=== PATIENT | female | born 1945 | race Caucasian/White ===

== ENCOUNTER 2018-08-16 13:54 | Emergency (ER) | payer BC ==
[2018-08-16 14:02] VITALS: BMI 23.8
[2018-08-16] MEDS ORDERED: METOPROLOL TARTRATE 5 MG/5 ML VIAL IVPUSH ONE (14:23)
[2018-08-16] MEDS ORDERED: ATENOLOL 50 MG TABLET (FP) PO ONE (14:23)
[2018-08-16] MEDS ORDERED: ATENOLOL 25 MG TABLET (FP) ONE (14:43)
[2018-08-16] MEDS ORDERED: METOPROLOL TARTRATE 5 MG/5 ML VIAL ONE (14:44)
--- NOTE | 2018-08-16 14:44 | PDOC ---
History of Present Illness - General Chief Complaint: Lightheaded Stated Complaint: HIGH BLOOD PRESSURE Time Seen by Provider: 08/16/18 14:08 History Source: Patient Exam Limitations: No Limitations - History of Present Illness Initial Comments: 08/16/18 14:30 72-year-old female with history of hypertension previously maintained on atenolol/hydrochlorothiazide and Altace, had hctz removed a few weeks ago and since then baseline BPs have gone from 120-130 systolic to 160. In this setting , saw her PCP last week and decision made to monitor BP and potentially increase Altace dosing if remained elevated. BP remained in the 160 range on routine checks until last night. Otherwise asymptomatic and denying headache/vision change/speech change/n/v/focal weakness /gait disturbance, no cp/sob. Pt called her PCP today but not in office, so self increased the Altace to 5mg and took usual dose of Atenolol 50mg. In this setting, pt began feeling lightheaded while at work. BP initially in [facility] 195 systolic, presented to ED and remained elevated over 200. Reports some general lightheadedness, no focal neuro or cardiopulmonary complaints. unlimited exercise tolerance at baseline, has had normal stress tests in the past. Admittedly anxious about her blood pressures (friend/colleague recently had a stroke). no recent f/c/weight loss/weight gain no abd pain/v/d no leg swelling or cramping social etoh, no smoking. Past History - Past Medical History Allergies/Adverse Reactions: Allergies Allergy/AdvReac Type Severity Reaction Status Date / Time No Known Allergies Allergy Verified 08/16/18 13:56 Home Medications: Ambulatory Orders Atenolol [Tenormin -] 50 mg PO DAILY 08/16/18 Ramipril [Altace] 5 mg PO DAILY 08/16/18 COPD: No HTN: Yes - Suicide/Smoking/Psychosocial Hx Smoking History: Never smoked Information on smoking cessation initiated: No Hx Alcohol Use: No Drug/Substance Use Hx: No Review of Systems - Review of Systems Constitutional: No: Chills, Fever HEENTM: No: Recent change in vision, Double Vision Respiratory: No: Orthopnea, Shortness of Breath, SOB with Exertion Cardiac (ROS): Yes: Lightheadedness. No: Chest Pain, Edema, Syncope ABD/GI: No: Diarrhea, Vomiting Neurological: No: Headache, Paresthesia, Weakness, Ataxia, Dizziness All Other Systems: Reviewed and Negative *Physical Exam - Vital Signs Last Vital Signs Temp Pulse Resp BP Pulse Ox 72 79 H 205/100 H 98 08/16/18 13:56 08/16/18 13:56 08/16/18 13:56 08/16/18 13:56 - Physical Exam Comments: 08/16/18 14:44 blood pressure 205/100 at triage. Heart rate 80, O2 sat normal GENERAL: The patient is awake, alert, and fully oriented, in no acute distress. Speaking full sentences fluently. HEAD: Normal with no signs of trauma. EYES: PERRL, EOMI, conjunctiva clear with no pallor. ENT: oropharynx clear. Moist mucous membranes. NECK: Normal range of motion, supple without JVD or masses. LUNGS: Breath sounds equal, clear to auscultation bilaterally. No wheeze/ crackles. HEART: Regular rate and rhythm, normal S1 and S2 without murmur. ABDOMEN: Soft/nontender/nondistended. BS wnl. No guarding or rebound. No palpable masses. No hepatosplenomegaly. EXTREMITIES: Normal range of motion, no edema. 2+ distal pulses. No cords, erythema, or tenderness. NEUROLOGICAL: Mental status: The patient is alert and oriented x3. Cranial nerves: Cranial nerves II through XII are intact Motor: The upper extremities are 5 over 5 in all muscle groups. The lower extremities are 5 over 5 in all muscle groups. No pronator drift. Sensation: Sensation is intact to light touch throughout. Cerebellar: [id number] is normal in both upper extremities. Reflexes: 2+ and symmetric in the upper and lower extremities. Gait: Normal. PSYCH: Normal mood, normal affect. SKIN: Warm, Dry, no rashes or lesions noted. Vital Signs - Vital Signs #1 Blood Pressure: 167/88 MAP: 114 BP Location: Right Arm Blood Pressure Position: Supine Pulse Rate: 68 Heart Score/ECG Review #1 ECG reviewed & interpreted by me at: 13:54 General ECG Interpretation: Sinus Rhythm, Normal Rate (74), Normal Intervals ( qtc 455), No acute ischemic changes Compared to previous ECG there are: Previous ECG unavail ED Treatment Course - LABORATORY CBC & Chemistry Diagram: 08/16/18 14:51 08/16/18 14:51 - RADIOLOGY Radiology Studies Ordered: Category Date Time Status CHEST X-RAY PORTABLE* [RAD] Stat Radiology 08/16/18 14:23 Ordered Medical Decision Making - Medical Decision Making 08/16/18 14:47 72-year-old female with history of hypertension and recent medication changes resulting in gradually increased baseline blood pressures now presents with lightheadedness in the setting of significantly elevated blood pressures. Exam is normal from a neurological and cardiopulmonary perspective, also asymptomatic without red flags for end organ injury on history. Check labs, EKG, chest x-ray Blood pressure control both intravenous and oral Monitor blood pressure, reassess 08/16/18 15:19 BP repeat prior to med administration 167/88, heart rate 68. Feeling better. Will hold IV/PO BB and instead give additional 2.5mg Altace. Continue to monitor , remains neuro and cardiopulm intact. labs pending. 08/16/18 15:42 labs wnl, trop negative. on my prelim review, cxr rotated but no acute pathology, mediastinum wnl. BP remains in the 160/60 range and sxs improved. Plan to continue on newly increased dose of Altace 5mg daily and scheduled f/u with her PCP on Wednesday. Understands strict return criteria. *DC/Admit/Observation/Transfer Diagnosis at time of Disposition: Elevated blood pressure reading, Lightheaded - Discharge Dispostion Disposition: HOME Condition at time of disposition: Improved - Referrals Referrals: Melvin Coe [Primary Care Provider] - - Patient Instructions Printed Discharge Instructions: DI for High Blood Pressure Additional Instructions: Activity as tolerated. Stay hydrated. Blood tests, an EKG, and a chest x-ray showed no acute abnormalities. You were given 2.5mg of Altace in the ER, in addition to the 5mg you took earlier today. As discussed, continue the Altace at the increased 5 mg daily until you see Dr. Coe. Also continue the Atenolol as previously prescribed. You should follow up with Dr. Coe as soon as possible regarding today's emergency department visit. Return to the emergency department for any new or concerning symptoms, particularly headache or vision changes, focal weakness, chest pain or shortness of breath. - Post Discharge Activity
[2018-08-16] MEDS ORDERED: RAMIPRIL 2.5 MG CAPSULE (FP) PO ONE (14:54)
[2018-08-16 14:59] LABS: BASO % 1.2 % (0-2.0); EOS % 0.6 % (0-4.5); HEMOGLOBIN 13.3 GM/dL (10.7-15.3); LYMPH % 16.9 % (8-40); MCH 30.6 pg (25.7-33.7); MEAN CELL VOLUME 90.1 fl (80-96); MEAN PLT VOLUME 9.3 fl (7.5-11.1); MONO % 5.3 % (3.8-10.2); PLATELET COUNT 181 K/MM3 (134-434); RBC 4.33 M/mm3 (3.60-5.2); RDW 12.4 % (11.6-15.6)
[2018-08-16 15:21] VITALS: BP 167/88; PULSE 68
[2018-08-16 15:39] LABS: ALBUMIN 3.8 g/dl (3.4-5.0); ALK PHOS 75 U/L (45-117); ANION GAP 9 MMOL/L (8-16); BILIRUBIN,TOTAL 0.5 mg/dL (0.2-1); BLOOD UREA NITROGEN 16 mg/dL (7-18); CALCIUM 8.8 mg/dL (8.5-10.1); CHLORIDE 101 mmol/L (98-107); CO2 26 mmol/L (21-32); CREATININE 0.6 mg/dL (0.55-1.3); GLUCOSE,RANDOM 116 mg/dL (74-106); MAGNESIUM 1.7 mg/dL (1.8-2.4); SGOT/AST 21 U/L (15-37); SGPT/ALT 21 U/L (13-61); SODIUM 136 mmol/L (136-145); TOT PROT 6.8 g/dl (6.4-8.2)
--- NOTE | 2018-08-17 11:05 | EKG ---
Test Reason : Blood Pressure : / mmHG Vent. Rate : 074 BPM Atrial Rate : 074 BPM P-R Int : 174 ms QRS Dur : 070 ms QT Int : 410 ms P-R-T Axes : 059 -14 044 degrees QTc Int : 455 ms POOR DATA QUALITY, INTERPRETATION MAY BE ADVERSELY AFFECTED NORMAL SINUS RHYTHM SEPTAL INFARCT , AGE UNDETERMINED ABNORMAL ECG WHEN COMPARED WITH ECG OF 29-MAR-2001 09:44, SEPTAL INFARCT IS NOW PRESENT NONSPECIFIC T WAVE ABNORMALITY, IMPROVED IN LATERAL LEADS QT HAS LENGTHENED Confirmed by ARSALAN BANUELOS, CHANCE ([id number]) on 08/17/2018 11:05:13 AM Referred By: Confirmed By:CHANCE ARRIAZA MD
== END 2018-08-16 16:02 | disposition home or self-care (01) ==
LOC: JER 13:54
DX: I10 Essential (primary) hypertension (principal)
CPT/HCPCS: 36415; 71045-TC-FY; 80053; 82550; 83735; 84484; 85025; 93005; 93010; 99282-25

== ENCOUNTER 2020-09-18 04:41 | Day surgery (SDC) | payer BC ==
[2020-09-16 15:06] VITALS: BMI 24.4
[2020-09-18 11:35] VITALS: TEMP 97.1
[2020-09-18 12:00] VITALS: PULSE 60
[2020-09-18 13:30] LABS: BASO % 1.2 % (0-2.0); EOS % 2.6 % (0-4.5); HEMATOCRIT 39.2 % (32.4-45.2); HEMOGLOBIN 13.4 GM/dL (10.7-15.3); LYMPH % 16.2 % (8-40); MCH 30.3 pg (25.7-33.7); MCHC 34.1 g/dl (32.0-36.0); MEAN CELL VOLUME 88.7 fl (80-96); MEAN PLT VOLUME 8.5 fl (7.5-11.1); PLATELET COUNT 241 K/MM3 (134-434); RBC 4.41 M/mm3 (3.60-5.2); RDW 12.8 % (11.6-15.6); WHITE BLOOD COUNT 7.1 K/mm3 (4.0-10.0)
[2020-09-18 13:54] VITALS: BP 164/60
[2020-09-18 13:54] LABS: INR 1.05 (0.83-1.09); PROTHROMBIN TIME (PATIENT) 12.9 SEC (9.7-13.0)
[2020-09-18 14:27] LABS: CALCIUM 8.8 mg/dL (8.5-10.1)
[2020-09-18 14:28] LABS: ALBUMIN 3.4 g/dl (3.4-5.0); BLOOD UREA NITROGEN 6.4 mg/dL (7-18)
[2020-09-18 14:31] LABS: CREATININE 0.5 mg/dL (0.55-1.3)
[2020-09-18 14:32] LABS: BILIRUBIN,TOTAL 0.5 mg/dL (0.2-1); TOT PROT 6.6 g/dl (6.4-8.2)
== END 2020-09-18 13:30 | disposition home or self-care (01) ==
LOC: JASU-ENDO 04:41
PROVIDERS: ATTEND Internal Medicine Gastroenterology
PROC: 0DBL8ZZ Excision of Transverse Colon, Via Natural or Artificial Opening Endoscopic (ICD-10-PCS; 2020-09-18)
PROC: 0DBP8ZX Excision of Rectum, Via Natural or Artificial Opening Endoscopic, Diagnostic (ICD-10-PCS; 2020-09-18)
PROC: 3E0H8KZ Introduction of Other Diagnostic Substance into Lower GI, Via Natural or Artificial Opening Endoscopic (ICD-10-PCS; 2020-09-18)
PROC: 0DBH8ZX Excision of Cecum, Via Natural or Artificial Opening Endoscopic, Diagnostic (ICD-10-PCS; principal; 2020-09-18 11:00)
DX: Z12.11 Encounter for screening for malignant neoplasm of colon (principal); D12.3 Benign neoplasm of transverse colon; D12.0 Benign neoplasm of cecum; C20 Malignant neoplasm of rectum; Z86.010 Personal history of colon polyps; K59.00 Constipation, unspecified; Z80.0 Family history of malignant neoplasm of digestive organs
CPT/HCPCS: 36415; 80053; 82378; 82728; 83540; 83550; 85025; 85610; 86140

== ENCOUNTER 2022-04-13 11:07 | Emergency (ER) | payer BC ==
[2022-04-13] MEDS ORDERED: FAMOTIDINE 20 MG/50 ML IVPB 20 MG/50 ML MG IVPB ONE ×2 (11:13→11:26)
[2022-04-13] MEDS ORDERED: MAG HYDROX/AL HYDROX/SIMETH 30 ML UNIT-DOSE CUP PO ONE (11:13)
[2022-04-13] MEDS ORDERED: ACETAMINOPHEN 1000 MG/100 ML BAG IVPB ONE (11:13)
[2022-04-13] MEDS ORDERED: ONDANSETRON 4 MG/2 ML VIAL IVPB ONE (11:14)
[2022-04-13] MEDS ORDERED: ONDANSETRON 4 MG/2 ML VIAL ONE (11:25)
[2022-04-13] MEDS ORDERED: ACETAMINOPHEN INJECTION 100 ML IVPB ONE (11:25)
[2022-04-13] MEDS ORDERED: MAG HYDROX/AL HYDROX/SIMETH 30 ML UNIT-DOSE CUP ONE (11:25)
[2022-04-13 11:30] VITALS: TEMP 97.8; BMI 23.6
[2022-04-13 11:58] LABS: BASO % 0.6 % (0-2.0); EOS % 0.3 % (0-4.5); HEMATOCRIT 37.3 % (32.4-45.2); HEMOGLOBIN 12.6 GM/dL (10.7-15.3); LYMPH % 8.5 % (8-40); MCH 29.6 pg (25.7-33.7); MCHC 33.7 g/dl (32.0-36.0); MEAN CELL VOLUME 87.8 fl (80-96); MEAN PLT VOLUME 7.8 fl (7.5-11.1); MONO % 5.9 % (3.8-10.2); NEUT % 84.7 % (42.8-82.8); PLATELET COUNT 222 10^3/uL (134-434); RBC 4.25 M/mm3 (3.60-5.2); RDW 13.4 % (11.6-15.6); WHITE BLOOD COUNT 6.8 K/mm3 (4.0-10.0)
[2022-04-13 12:26] LABS: ALBUMIN 3.7 g/dl (3.4-5.0); BLOOD UREA NITROGEN 13.6 mg/dL (7-18); CALCIUM 9.3 mg/dL (8.5-10.1)
[2022-04-13 12:27] LABS: MAGNESIUM 1.6 mg/dL (1.8-2.4)
[2022-04-13 12:29] LABS: CREATININE 0.7 mg/dL (0.55-1.3)
[2022-04-13 12:31] LABS: TOT PROT 7.5 g/dl (6.4-8.2)
[2022-04-13 12:36] LABS: BILIRUBIN,TOTAL 0.4 mg/dL (0.2-1)
[2022-04-13] MEDS ORDERED: SODIUM CHLORIDE 0.9% 500 ML INFUS.BAG IV ONE (12:36)
[2022-04-13] MEDS ORDERED: MAGNESIUM SULF 50% (8.12 MEQ/2 ML-1 GM VIAL) IVPB ONE (12:36)
[2022-04-13] MEDS ORDERED: MAGNESIUM SULFATE IN WATER 2 GM/50 ML IVPB IVPB ONE (15:24)
[2022-04-13 16:46] LABS: PH,URINE 6.5 (5.0-8.0); URINE APPEARANCE CLEAR; URINE BILIRUBIN NEGATIVE (NEGATIVE); URINE COLOR YELLOW; URINE GLUCOSE (UA) NEGATIVE (NEGATIVE); URINE KETONE 1+ (NEGATIVE); URINE LEUK ESTERASE NEGATIVE (NEGATIVE); URINE NITRITE NEGATIVE (NEGATIVE); URINE PROTEIN NEGATIVE (NEGATIVE); URINE UROBILINOGEN 0.2 mg/dL (0.2-1.0)
[2022-04-13 17:15] VITALS: BP 178/77; PULSE 66; RESP 18
== END 2022-04-13 17:21 | disposition home or self-care (01) ==
LOC: JER 11:07
PROC: 3E033GC Introduction of Other Therapeutic Substance into Peripheral Vein, Percutaneous Approach (ICD-10-PCS; principal; 2022-04-13)
DX: R10.13 Epigastric pain (principal); R11.2 Nausea with vomiting, unspecified; E87.1 Hypo-osmolality and hyponatremia
CPT/HCPCS: 0241U-QW; 36415; 71045-TC-FY; 74177-TC; 80053; 81003; 83605; 83690; 83735; 84484; 85025; 87086; 93005; 93010; 99285-25; Q9967

== ENCOUNTER 2022-08-26 04:25 | Day surgery (SDC) | payer BC ==
[2022-08-24 14:08] VITALS: BMI 23.0
[2022-08-26] MEDS ORDERED: PROPOFOL 60 ML ONE (10:23)
[2022-08-26 11:02] VITALS: TEMP 97.8
[2022-08-26 12:00] VITALS: BP 157/68; PULSE 63; RESP 18
== END 2022-08-26 12:09 | disposition home or self-care (01) ==
LOC: JASU-ENDO 04:25
PROVIDERS: ATTEND Internal Medicine Gastroenterology
PROC: 0DBN8ZX Excision of Sigmoid Colon, Via Natural or Artificial Opening Endoscopic, Diagnostic (ICD-10-PCS; principal; 2022-08-26 11:00)
DX: Z12.11 Encounter for screening for malignant neoplasm of colon (principal); K63.5 Polyp of colon; Z85.048 Personal history of other malignant neoplasm of rectum, rectosigmoid junction, and anus; Z98.0 Intestinal bypass and anastomosis status
CPT/HCPCS: 88305-TC

== ENCOUNTER 2023-10-28 16:13 | Observation (INO) | payer BC, OTHER ==
[2023-10-28 17:13] LABS: INR 1.02 (0.83-1.09); PROTHROMBIN TIME (PATIENT) 11.7 SEC (9.7-13.0)
[2023-10-28 17:14] LABS: EOS % 1.4 % (0-4.5); HEMATOCRIT 34.8 % (32.4-45.2); HEMOGLOBIN 12.1 GM/dL (10.7-15.3); LYMPH % 17.3 % (8-40); MCH 30.8 pg (25.7-33.7); MCHC 34.9 g/dl (32.0-36.0); MEAN CELL VOLUME 88.3 fl (80-96); MEAN PLT VOLUME 7.4 fl (7.5-11.1); MONO % 11.1 % (3.8-10.2); NEUT % 69.2 % (42.8-82.8); PLATELET COUNT 200 10^3/uL (134-434); RBC 3.94 M/mm3 (3.60-5.2); RDW 12.3 % (11.6-15.6); WHITE BLOOD COUNT 5.9 K/mm3 (4.0-10.0)
[2023-10-28 17:15] LABS: ACTIVATED PTT 21.8 SECONDS (25.2-36.5)
[2023-10-28 17:25] LABS: POTASSIUM 3.4 mmol/L (3.5-5.1)
[2023-10-28 17:27] LABS: ALBUMIN 3.8 g/dl (3.4-5.0); BLOOD UREA NITROGEN 10.7 mg/dL (7-18); CALCIUM 8.9 mg/dL (8.5-10.1)
[2023-10-28 17:30] LABS: CREATININE 0.6 mg/dL (0.55-1.3)
[2023-10-28 17:32] LABS: BILIRUBIN,TOTAL 0.4 mg/dL (0.2-1); TOT PROT 7.2 g/dl (6.4-8.2)
[2023-10-28] MEDS: SODIUM CHLORIDE 0.9% 500 ML INFUS.BAG IV ONE (17:32)
[2023-10-28 18:31] LABS: MAGNESIUM 1.7 mg/dL (1.8-2.4)
[2023-10-28] MEDS ORDERED: POTASSIUM CHLORIDE TABS 10 MEQ TABLET.ER (FP) PO ONE (18:34)
[2023-10-28] MEDS ORDERED: MAGNESIUM SULFATE IN WATER 2 GM/50 ML IVPB IVPB ONE (18:43)
[2023-10-28] MEDS ORDERED: POTASSIUM CHLORIDE TABS 20 MEQ TABLET.ER (FP) PO ONE (18:43)
[2023-10-28] MEDS ORDERED: POTASSIUM CHLORIDE ORAL LIQUID 20 MEQ/15 ML ONE (18:51)
[2023-10-28] MEDS: MAGNESIUM SULFATE IN WATER 2 GM/50 ML IVPB IVPB ONE (19:02)
[2023-10-28] MEDS: POTASSIUM CHLORIDE ORAL LIQUID 20 MEQ/15 ML PO ONE (19:02)
[2023-10-28 21:15] LABS: POTASSIUM 4.2 mmol/L (3.5-5.1)
[2023-10-28 21:16] LABS: CALCIUM 8.8 mg/dL (8.5-10.1)
[2023-10-28 21:17] LABS: BLOOD UREA NITROGEN 9.9 mg/dL (7-18)
[2023-10-28 21:20] LABS: CREATININE 0.5 mg/dL (0.55-1.3)
[2023-10-28 22:02] VITALS: BMI 25.2
[2023-10-29 01:46] VITALS: RESP 18
[2023-10-29 08:12] LABS: BASO % 0.9 % (0-2.0); EOS % 2.3 % (0-4.5); HEMATOCRIT 33.3 % (32.4-45.2); HEMOGLOBIN 11.3 GM/dL (10.7-15.3); LYMPH % 17.8 % (8-40); MCH 30.6 pg (25.7-33.7); MCHC 34.1 g/dl (32.0-36.0); MEAN CELL VOLUME 89.8 fl (80-96); MEAN PLT VOLUME 7.9 fl (7.5-11.1); MONO % 11.9 % (3.8-10.2); NEUT % 67.1 % (42.8-82.8); PLATELET COUNT 186 10^3/uL (134-434); RBC 3.71 M/mm3 (3.60-5.2); RDW 12.1 % (11.6-15.6); WHITE BLOOD COUNT 4.6 K/mm3 (4.0-10.0)
[2023-10-29] MEDS ORDERED: ACETAMINOPHEN 1000 MG/100 ML BAG IVPB PRN (08:12)
[2023-10-29] MEDS: ATENOLOL 50 MG TABLET (FP) PO SCH (09:15)
[2023-10-29] MEDS: RAMIPRIL 5 MG CAPSULE PO SCH (09:15)
[2023-10-29 09:26] LABS: POTASSIUM 3.8 mmol/L (3.5-5.1)
[2023-10-29 09:30] LABS: ALBUMIN 3.2 g/dl (3.4-5.0); BLOOD UREA NITROGEN 8.8 mg/dL (7-18); CALCIUM 8.5 mg/dL (8.5-10.1)
[2023-10-29 09:33] LABS: CREATININE 0.5 mg/dL (0.55-1.3)
[2023-10-29 09:35] LABS: BILIRUBIN,TOTAL 0.4 mg/dL (0.2-1); TOT PROT 6.3 g/dl (6.4-8.2)
[2023-10-29 09:37] LABS: URINE APPEARANCE CLEAR; URINE BILIRUBIN NEGATIVE (NEGATIVE); URINE COLOR YELLOW; URINE GLUCOSE (UA) NEGATIVE (NEGATIVE); URINE KETONE NEGATIVE (NEGATIVE); URINE LEUK ESTERASE NEGATIVE (NEGATIVE); URINE NITRITE NEGATIVE (NEGATIVE); URINE PROTEIN NEGATIVE (NEGATIVE); URINE UROBILINOGEN 0.2 mg/dL (0.2-1.0)
[2023-10-29] MEDS ORDERED: RAMIPRIL 5 MG CAPSULE PO SCH (10:00)
[2023-10-29] MEDS: CYANOCOBALAMIN (VITAMIN B-12) 1000 MCG/1 ML VIAL IM ONE (10:38)
[2023-10-29 14:25] VITALS: BP 156/71; PULSE 62; TEMP 98.1
== END 2023-10-29 16:05 | disposition home or self-care (01) ==
LOC: JER 16:13 → JERBED 16:45 → J4S 19:47
PROVIDERS: ADMIT Internal Medicine; ATTEND Internal Medicine
PROC: 3E0337Z Introduction of Electrolytic and Water Balance Substance into Peripheral Vein, Percutaneous Approach (ICD-10-PCS; principal; 2023-10-28)
DX: S06.360A Traumatic hemorrhage of cerebrum, unspecified, without loss of consciousness, initial encounter (principal); S02.2XXA Fracture of nasal bones, initial encounter for closed fracture; W18.39XA Other fall on same level, initial encounter; Z85.038 Personal history of other malignant neoplasm of large intestine; Y93.89 Activity, other specified; Y92.410 Unspecified street and highway as the place of occurrence of the external cause; I16.0 Hypertensive urgency; E87.1 Hypo-osmolality and hyponatremia; Z88.2 Allergy status to sulfonamides; Z88.8 Allergy status to other drugs, medicaments and biological substances
CPT/HCPCS: 36415; 70450-TC; 70496-TC; 70498-TC; 72125-TC; 80048; 80053; 81003; 82570; 82607; 82746; 83036; 83735; 84300; 84439; 84443; 84484; 85025; 85610; 85730; 86850; 86900; 86901; 93005; 93010; 97116-GP; 97161-GP; 99285-25; G0378; Q9967

== ENCOUNTER 2023-11-19 22:39 | Emergency (ER) | payer BC ==
[2023-11-19] MEDS ORDERED: cloNIDine HCL 0.1 MG TABLET ONE (22:55)
[2023-11-19] MEDS: cloNIDine HCL 0.1 MG TABLET PO ONE (23:00)
[2023-11-19 23:05] VITALS: PULSE 78; RESP 16; TEMP 98.9; BMI 22.2
[2023-11-20] MEDS ORDERED: ALPRAZolam 0.25 MG TABLET ONE (00:11)
[2023-11-20] MEDS: ALPRAZolam 1 MG TABLET PO STA (00:13)
[2023-11-20 00:39] VITALS: BP 148/83
== END 2023-11-20 00:40 | disposition home or self-care (01) ==
LOC: FER 22:39
DX: R03.0 Elevated blood-pressure reading, without diagnosis of hypertension (principal)
CPT/HCPCS: 70450-TC; 99284-25

== ENCOUNTER 2023-11-20 11:53 | Observation (INO) | payer BC ==
[2023-11-20] MEDS ORDERED: ASPIRIN 81 MG CHEWABLE TABLETS ONE (12:54)
[2023-11-20 12:57] LABS: BASO % 0.3 % (0-2.0); EOS % 0.9 % (0-4.5); HEMATOCRIT 37.3 % (32.4-45.2); HEMOGLOBIN 12.9 GM/dL (10.7-15.3); LYMPH % 10.2 % (8-40); MCH 30.8 pg (25.7-33.7); MCHC 34.7 g/dl (32.0-36.0); MEAN CELL VOLUME 88.8 fl (80-96); MEAN PLT VOLUME 7.9 fl (7.5-11.1); MONO % 7.5 % (3.8-10.2); NEUT % 81.1 % (42.8-82.8); PLATELET COUNT 171 10^3/uL (134-434); RDW 13.1 % (11.6-15.6); WHITE BLOOD COUNT 5.9 K/mm3 (4.0-10.0)
[2023-11-20] MEDS: ASPIRIN 81 MG CHEWABLE TABLETS PO ONE (12:57)
[2023-11-20 13:07] LABS: URINE APPEARANCE CLEAR; URINE BILIRUBIN NEGATIVE (NEGATIVE); URINE COLOR YELLOW; URINE GLUCOSE (UA) NEGATIVE (NEGATIVE); URINE KETONE NEGATIVE (NEGATIVE); URINE LEUK ESTERASE NEGATIVE (NEGATIVE); URINE NITRITE NEGATIVE (NEGATIVE); URINE PROTEIN NEGATIVE (NEGATIVE); URINE UROBILINOGEN 0.2 mg/dL (0.2-1.0)
[2023-11-20 13:07] LABS: INR 0.97 (0.83-1.09)
[2023-11-20 13:10] LABS: ACTIVATED PTT 26.4 SECONDS (25.2-36.5)
[2023-11-20 13:22] LABS: POTASSIUM 4.4 mmol/L (3.5-5.1)
[2023-11-20 13:24] LABS: ALBUMIN 3.6 g/dl (3.4-5.0); CALCIUM 8.9 mg/dL (8.5-10.1)
[2023-11-20 13:26] LABS: BLOOD UREA NITROGEN 9.4 mg/dL (7-18)
[2023-11-20 13:28] LABS: CREATININE 0.6 mg/dL (0.55-1.3)
[2023-11-20 13:29] LABS: TOT PROT 7.4 g/dl (6.4-8.2)
[2023-11-20 13:31] LABS: BILIRUBIN,TOTAL 0.9 mg/dL (0.2-1)
[2023-11-20] MEDS ORDERED: ATENOLOL 50 MG TABLET (FP) PO SCH (15:00)
[2023-11-20] MEDS ORDERED: RAMIPRIL 5 MG CAPSULE PO SCH (15:15)
[2023-11-20 16:36] LABS: POTASSIUM 3.8 mmol/L (3.5-5.1)
[2023-11-20 16:38] LABS: BLOOD UREA NITROGEN 10.1 mg/dL (7-18); CALCIUM 8.8 mg/dL (8.5-10.1)
[2023-11-20 16:40] LABS: CREATININE 0.6 mg/dL (0.55-1.3)
[2023-11-20] MEDS ORDERED: amLODIPine BESYLATE 5 MG TABLET (FP) ONE (17:51)
[2023-11-20] MEDS: amLODIPine BESYLATE 5 MG TABLET (FP) PO SCH (17:56)
[2023-11-20 21:11] VITALS: BMI 25.2
[2023-11-21 07:42] LABS: HEMATOCRIT 32.5 % (32.4-45.2); HEMOGLOBIN 11.1 GM/dL (10.7-15.3); MCH 30.6 pg (25.7-33.7); MCHC 34.2 g/dl (32.0-36.0); MEAN CELL VOLUME 89.6 fl (80-96); MEAN PLT VOLUME 8.2 fl (7.5-11.1); PLATELET COUNT 155 10^3/uL (134-434); RBC 3.63 M/mm3 (3.60-5.2); RDW 13.3 % (11.6-15.6); WHITE BLOOD COUNT 4.3 K/mm3 (4.0-10.0)
[2023-11-21 07:58] LABS: POTASSIUM 3.3 mmol/L (3.5-5.1)
[2023-11-21 08:01] LABS: BLOOD UREA NITROGEN 10.7 mg/dL (7-18); CALCIUM 8.7 mg/dL (8.5-10.1); MAGNESIUM 1.6 mg/dL (1.8-2.4)
[2023-11-21 08:05] LABS: CREATININE 0.6 mg/dL (0.55-1.3); PHOSPHOROUS 3.4 mg/dL (2.5-4.9)
[2023-11-21] MEDS: RAMIPRIL 5 MG CAPSULE PO SCH (10:17)
[2023-11-21] MEDS: CYANOCOBALAMIN 1,000 MCG TABLET (FP) PO SCH (10:17)
[2023-11-21] MEDS: POTASSIUM CHLORIDE TABS 20 MEQ TABLET.ER (FP) PO ONE (13:19)
[2023-11-21] MEDS: ATENOLOL 50 MG TABLET (FP) PO SCH (14:08)
[2023-11-21] MEDS: ATENOLOL 25 MG TABLET (FP) PO SCH (14:10)
[2023-11-21] MEDS: MAGNESIUM OXIDE 400 MG TABLET (FP) PO SCH (14:11)
[2023-11-21 16:15] LABS: POTASSIUM 3.6 mmol/L (3.5-5.1)
[2023-11-21 17:09] LABS: BLOOD UREA NITROGEN 11.1 mg/dL (7-18); CREATININE 0.6 mg/dL (0.55-1.3)
[2023-11-22 08:04] LABS: POTASSIUM 3.4 mmol/L (3.5-5.1)
[2023-11-22 08:07] LABS: CALCIUM 8.9 mg/dL (8.5-10.1)
[2023-11-22 08:11] LABS: CREATININE 0.6 mg/dL (0.55-1.3)
[2023-11-22 09:46] LABS: URINE APPEARANCE CLEAR; URINE BILIRUBIN NEGATIVE (NEGATIVE); URINE COLOR YELLOW; URINE GLUCOSE (UA) NEGATIVE (NEGATIVE); URINE KETONE NEGATIVE (NEGATIVE); URINE LEUK ESTERASE NEGATIVE (NEGATIVE); URINE NITRITE NEGATIVE (NEGATIVE); URINE PROTEIN NEGATIVE (NEGATIVE); URINE UROBILINOGEN 0.2 mg/dL (0.2-1.0)
[2023-11-22] MEDS: ASPIRIN COATED 81 MG TABLET.EC PO SCH (10:00)
[2023-11-22] MEDS: POTASSIUM CHLORIDE ORAL LIQUID 20 MEQ/15 ML PO ONE (14:19)
[2023-11-22] MEDS: ATORVASTATIN CA 40 MG TABLET (FP) PO SCH (21:06)
[2023-11-23 06:55] LABS: POTASSIUM 3.9 mmol/L (3.5-5.1)
[2023-11-23 07:00] LABS: ALBUMIN 3.3 g/dl (3.4-5.0); CALCIUM 8.8 mg/dL (8.5-10.1)
[2023-11-23 07:01] LABS: BLOOD UREA NITROGEN 12.1 mg/dL (7-18)
[2023-11-23 07:03] LABS: CREATININE 0.6 mg/dL (0.55-1.3); PHOSPHOROUS 3.2 mg/dL (2.5-4.9)
[2023-11-23 07:04] LABS: BILIRUBIN,TOTAL 0.7 mg/dL (0.2-1); TOT PROT 6.6 g/dl (6.4-8.2)
[2023-11-23] MEDS: VALSARTAN 160 MG TABLET PO SCH (10:48)
[2023-11-23] MEDS: hydrALAZINE HCL 20 MG/ML VIAL IVPUSH ONE (22:08)
[2023-11-24 06:33] LABS: BASO % 1.2 % (0-2.0); EOS % 2.7 % (0-4.5); HEMATOCRIT 35.6 % (32.4-45.2); HEMOGLOBIN 12.4 GM/dL (10.7-15.3); LYMPH % 19.3 % (8-40); MCH 31.3 pg (25.7-33.7); MCHC 34.8 g/dl (32.0-36.0); MEAN CELL VOLUME 89.9 fl (80-96); MEAN PLT VOLUME 7.6 fl (7.5-11.1); MONO % 12.3 % (3.8-10.2); NEUT % 64.5 % (42.8-82.8); PLATELET COUNT 195 10^3/uL (134-434); RBC 3.96 M/mm3 (3.60-5.2)
[2023-11-24 07:03] LABS: POTASSIUM 4.4 mmol/L (3.5-5.1)
[2023-11-24 07:07] LABS: ALBUMIN 3.6 g/dl (3.4-5.0); CALCIUM 9.4 mg/dL (8.5-10.1); MAGNESIUM 2.2 mg/dL (1.8-2.4)
[2023-11-24 07:11] LABS: BILIRUBIN,TOTAL 0.6 mg/dL (0.2-1); CREATININE 0.7 mg/dL (0.55-1.3); PHOSPHOROUS 3.7 mg/dL (2.5-4.9); TOT PROT 6.7 g/dl (6.4-8.2)
[2023-11-24] MEDS ORDERED: hydrALAZINE HCL 25 MG TABLET (FP) PO PRN (16:31)
[2023-11-24] MEDS: ALPRAZolam 0.25 MG TABLET PO SCH (21:49)
[2023-11-25 08:36] LABS: POTASSIUM 4.2 mmol/L (3.5-5.1)
[2023-11-25 08:37] LABS: CALCIUM 9.2 mg/dL (8.5-10.1)
[2023-11-25 08:38] LABS: BLOOD UREA NITROGEN 15.3 mg/dL (7-18)
[2023-11-25 08:41] LABS: CREATININE 0.7 mg/dL (0.55-1.3)
[2023-11-25 09:00] VITALS: RESP 15
[2023-11-25] MEDS ORDERED: ATENOLOL 25 MG TABLET (FP) PO SCH ×3 (12:02→20:00)
[2023-11-25 14:32] VITALS: BP 131/61; PULSE 66; TEMP 98.1
== END 2023-11-25 15:03 | disposition home or self-care (01) ==
LOC: JER 11:53 → JERBED 14:25 → J4S 20:33
PROVIDERS: ADMIT Internal Medicine; ATTEND Internal Medicine
PROC: 3E033GC Introduction of Other Therapeutic Substance into Peripheral Vein, Percutaneous Approach (ICD-10-PCS; principal; 2023-11-20)
DX: G45.9 Transient cerebral ischemic attack, unspecified (principal); I10 Essential (primary) hypertension; E87.1 Hypo-osmolality and hyponatremia; R49.0 Dysphonia; F41.9 Anxiety disorder, unspecified; Z86.79 Personal history of other diseases of the circulatory system; Z85.038 Personal history of other malignant neoplasm of large intestine
CPT/HCPCS: 0241U-QW; 36415; 70450-TC; 70496-TC; 70498-TC; 70551-TC; 80048; 80053; 80061; 81003; 82533; 82550; 82962; 83036; 83735; 83930; 83935; 84100; 84155; 84165; 84436; 84443; 84484; 85025; 85027; 85610; 85730; 86618; 93005; 93010; 93306-TC; 97116-GP; 99285-25; G0378